=== PATIENT | female | born 1995 | race Caucasian/White ===

== ENCOUNTER → 2025-04-24 11:13 | Outpatient (REF) | payer OTHER, SELFPAY | LOC: PNTC 11:13 | PROVIDERS: ATTENDING PHYSICIAN Obstetrics & Gynecology | DX: Z36.0 Encounter for antenatal screening for chromosomal anomalies (principal); Z36.82 Encounter for antenatal screening for nuchal translucency | CPT/HCPCS: 76801; 76813 ==

== ENCOUNTER → 2025-05-20 11:15 | Outpatient (REF) | payer OTHER, SELFPAY | LOC: PNTC 11:15 | PROVIDERS: ATTENDING PHYSICIAN Obstetrics & Gynecology | DX: O99.210 Obesity complicating pregnancy, unspecified trimester (principal) | CPT/HCPCS: 76805 ==

== ENCOUNTER → 2025-06-20 15:55 | Outpatient (REF) | payer OTHER, SELFPAY | LOC: PNTC 15:55 | PROVIDERS: ATTENDING PHYSICIAN Obstetrics & Gynecology | DX: O99.210 Obesity complicating pregnancy, unspecified trimester (principal) | CPT/HCPCS: 76811; 76817 ==

== ENCOUNTER → 2025-07-18 09:55 | Outpatient (REF) | payer OTHER, SELFPAY | LOC: PNTC 09:55 | PROVIDERS: ATTENDING PHYSICIAN Obstetrics & Gynecology | DX: Z87.59 Personal history of other complications of pregnancy, childbirth and the puerperium (principal); O99.212 Obesity complicating pregnancy, second trimester | CPT/HCPCS: 76816 ==

== ENCOUNTER → 2025-08-15 11:24 | Outpatient (REF) | payer OTHER, SELFPAY | LOC: PNTC 11:24 | PROVIDERS: ATTENDING PHYSICIAN Obstetrics & Gynecology | DX: O99.213 Obesity complicating pregnancy, third trimester (principal); Z87.59 Personal history of other complications of pregnancy, childbirth and the puerperium | CPT/HCPCS: 76816 ==

== ENCOUNTER → 2025-09-11 09:50 | Outpatient (REF) | payer OTHER, SELFPAY | LOC: PNTC 09:50 | PROVIDERS: ATTENDING PHYSICIAN Obstetrics & Gynecology | DX: O99.213 Obesity complicating pregnancy, third trimester (principal); Z87.59 Personal history of other complications of pregnancy, childbirth and the puerperium | CPT/HCPCS: 76816 ==

== ENCOUNTER 2025-09-25 16:22 | Observation (INO) | payer OTHER, SELFPAY ==
[2025-09-25 16:44] LABS: Hematocrit 34.1 % (37.0-47.0); Hemoglobin 11.6 g/dL (12.0-16.0); Mean Corp Hgb Conc. 34.0 g/dL (33.0-37.0); Mean Corpuscular Volume 88.3 fL (81.0-99.0); Platelet Count 152 10^3/uL (130-400); Red Cell Dist. Width 12.6 % (11.5-14.5)
[2025-09-25 16:50] LABS: Urine Character Slightly Cloudy (Clear)
[2025-09-25 16:58] VITALS: BP 129/51; BMI 41.2
[2025-09-25 17:02] LABS: ALT (SGPT) 14 U/L (0-35); AST (SGOT) 21 U/L (14-36); Albumin 3.5 g/dl (3.5-5.0); Alkaline Phosphatase 73 U/L (38-126); Blood Urea Nitrogen 8 mg/dl (7-17); Calcium 8.5 mg/dl (8.4-10.2); Carbon Dioxide 21 mmol/L (22-30); Chloride 104 mmol/L (98-107); Glucose 78 mg/dl (70-99); Potassium 3.9 mmol/L (3.5-5.1); Sodium 131 mmol/L (135-145); Total Protein 6.4 g/dl (6.3-8.2); eGFR > 60.00
[2025-09-25 19:52] LABS: Urine Squamous Cell >30 /LPF (Few)
[2025-09-25 19:53] LABS: Urine Red Blood Cell 0-2 /HPF (0-2)
== END 2025-09-25 17:58 | disposition home or self-care (01) ==
LOC: PNTC-IN 16:22
PROVIDERS: ADMITTING PHYSICIAN Obstetrics & Gynecology; ATTENDING PHYSICIAN Obstetrics & Gynecology
DX: O99.213 Obesity complicating pregnancy, third trimester (principal); Z87.59 Personal history of other complications of pregnancy, childbirth and the puerperium; Z88.1 Allergy status to other antibiotic agents; Z88.0 Allergy status to penicillin
CPT/HCPCS: 59025; 76815; 80053; 81003; 81015; 82570; 84156; 85027; G0378

== ENCOUNTER → 2025-10-02 16:18 | Outpatient (REF) | payer OTHER, SELFPAY | LOC: PNTC 16:18 | PROVIDERS: ATTENDING PHYSICIAN Obstetrics & Gynecology | DX: O99.213 Obesity complicating pregnancy, third trimester (principal); Z87.59 Personal history of other complications of pregnancy, childbirth and the puerperium | CPT/HCPCS: 59025; 76815 ==

== ENCOUNTER → 2025-10-09 07:52 | Outpatient (REF) | payer OTHER, SELFPAY | LOC: PNTC 07:52 | PROVIDERS: ATTENDING PHYSICIAN Student in an Organized Health Care Education/Training Program; OTHER PHYSICIAN Obstetrics & Gynecology | DX: O99.213 Obesity complicating pregnancy, third trimester (principal); Z87.59 Personal history of other complications of pregnancy, childbirth and the puerperium | CPT/HCPCS: 59025; 76816 ==

== ENCOUNTER → 2025-10-16 07:59 | Outpatient (REF) | payer OTHER, SELFPAY | LOC: PNTC 07:59 | PROVIDERS: ATTENDING PHYSICIAN Obstetrics & Gynecology | DX: O99.213 Obesity complicating pregnancy, third trimester (principal); Z87.59 Personal history of other complications of pregnancy, childbirth and the puerperium | CPT/HCPCS: 59025; 76815 ==